=== PATIENT | male | born 1995 | race Two or more races ===

== ENCOUNTER 2021-01-15 19:49 | Emergency (ER) | payer BC ==
[2021-01-15 19:56] VITALS: BP 155/77; PULSE 68; TEMP 97; BMI 25.0
== END 2021-01-15 20:36 | disposition home or self-care (01) ==
LOC: JER 19:49 → JERFT 19:49
DX: L02.415 Cutaneous abscess of right lower limb (principal)
CPT/HCPCS: 99281-25